=== PATIENT | female | born 1975 | race Caucasian/White ===

== ENCOUNTER 2020-08-23 05:25 | Day surgery (SDC) | payer MEDICARE, MEDICAID ==
[2020-08-16 13:47] LABS: BASOPHILS # (AUTO) 0.1 X10'3 (0-0.2); BASOPHILS % (AUTO) 0.9 % (0-1); EOSINOPHILS # (AUTO) 0.1 X10'3 (0-0.9); EOSINOPHILS % (AUTO) 0.7 % (0-6); LYMPHOCYTES # (AUTO) 2.4 X10'3 (1.1-4.8); LYMPHOCYTES % (AUTO) 33.8 % (21-51); MEAN CORPUSCULAR HEMOGLOBIN 30.1 PG (27.0-31.0); MEAN CORPUSCULAR VOLUME 91.1 FL (78-98); MEAN PLATELET VOLUME 8.1 FL (7.4-10.4); MONOCYTES # (AUTO) 0.6 X10'3 (0-0.9); MONOCYTES % (AUTO) 8.5 % (2-12); NEUTROPHILS % (AUTO) 56.1 % (42-75); PRE OP HEMATOCRIT 49.9 % (35.0-45.0); PRE OP HEMOGLOBIN 16.5 g/dL (12.0-16.0); PRE OP PLATELET COUNT 324 X10'3 (140-440); RED BLOOD COUNT 5.47 X10'6 (4.20-5.60); RED CELL DISTRIBUTION WIDTH 13.1 % (11.5-14.5)
[2020-08-16 14:02] LABS: ALBUMIN 3.9 G/DL (3.4-5.0); ALKALINE PHOSPHATASE 55 IU/L (46-116); BLOOD UREA NITROGEN 12 MG/DL (7-18); BUN/CREATININE RATIO 11.1 (6.6-38.0); CALCIUM 9.5 MG/DL (8.5-10.1); CHLORIDE 107 MMOL/L (99-107); CREATININE 1.08 MG/DL (0.40-0.90); PRE OP ALT 23 U/L (30-65); PRE OP ANION GAP 12 (8-16); PRE OP AST 11 U/L (10-37); PRE OP BILIRUB, TOTAL 0.5 MG/DL (0.0-1.0); PRE OP GLUCOSE 119 MG/DL (70-104); PRE OP POTASSIUM 3.9 MMOL/L (3.4-5.1); PRE OP SODIUM 143 MMOL/L (135-145); TOTAL CARBON DIOXIDE 23.7 MMOL/L (24-32); TOTAL PROTEIN 7.8 G/DL (6.4-8.2); eGFR 55 ML/MIN
[2020-08-16 14:06] LABS: HCG SERUM QL NEGATIVE
[~2020-08-23] VITALS: Ht 157.5 cm; Wt 95.0 kg
[~2020-08-23 05:25] MED LIST: ACETAMINOPHEN PO; ALB0.5UD IH; BUPR100T7 PO; BUSP10TA3 PO; ERGO500054 PO; ESOM20CA38 PO; FLUT16SP11 BOTHNARES; GABA600T13 PO; IBUP-1986 PO; LEVO1TAB80 PO; LIDO28.35 TOP; LORA10TA7 PO; METF-900 PO; METO-395 PO; ONDA4TAB12 PO; TOP100T PO; UBRO50TA PO; ZIPR80CA10 PO; ringers solution, lacted 1,000 ML IV SCH
[2020-08-23] MEDS ORDERED: DOCUMENT DATE & TIME OF BETA-BLOCKER PO ONE (05:30)
[2020-08-23] MEDS ORDERED: clindamycin-Cleocin 900mg/D5W 50 ML IV ONE (05:30)
[2020-08-23] MEDS ORDERED: famotidine 20mg tablet PO ONE (05:30)
[2020-08-23 06:00] VITALS: BP 137/92
[2020-08-23] MEDS ORDERED: BUPIVAcaine/PF 2.5mg/ml (0.25%) 10ml vial ONE (06:48)
[2020-08-23] MEDS ORDERED: LIDOcaine 0.5% (5mg/ml) 50ml vial ONE (07:26)
[2020-08-23] MEDS ORDERED: morphine 2 MG/ML inj. syringe IV PRN (07:35)
[2020-08-23] MEDS ORDERED: proCHLORperazine 10 MG/2 ml inj IV PRN (07:35)
[2020-08-23] MEDS ORDERED: ringers solution, lacted 1,000 ML IV SCH (07:35)
[2020-08-23] MEDS ORDERED: morphine 4 MG/ML inj SYRINge IV PRN (07:35)
[2020-08-23] MEDS ORDERED: ondansetron/PF 4mg/2ml inj IV PRN (07:35)
[2020-08-23] MEDS ORDERED: meperidine/PF 25mg/ml syringe IV PRN ×3 (07:35)
[2020-08-23] MEDS ORDERED: LIDOcaine 1% (10mg/ml) 2ml vial ONE (07:39)
[2020-08-23] MEDS ORDERED: midazolam 2 mg/2 ml injection ONE (08:24)
[2020-08-23] MEDS ORDERED: fentaNYL/PF 50MCG/1 ML 2ML syringe ONE (08:24)
[2020-08-23] MEDS ORDERED: propofol inj 20 ML IV ONE (09:00)
[2020-08-23 09:12] VITALS: BP_SYST 130; BP_SYST 137; BP_DIAS 80; BP_DIAS 91
[2020-08-23 09:20] VITALS: BP 126/74
[2020-08-23 09:30] VITALS: BP 129/85
[2020-08-23 09:40] VITALS: BP 145/82
--- NOTE | 2020-08-23 09:40 | NUR ---
Pt blood sugar 44 but not symptomatic, MD was called, states ok to just do PO sugars juice crackers etc. Retested blood sugar prior to DC and up to 107. Pt feels stable and this was all relayed by phone to caregiver so she can follow up with hydration and food intake today.
--- NOTE | 2020-08-23 10:02 | NUR ---
PATIENT AND FAMILY AND THEY HAVE VERBALIZED UNDERSTANDING, OPPORTUNITY TO ASK QUESTIONS GIVEN AND PATIENT COMFORTABLE WITH DC. IV TAKEN OUT WITHOUT COMPLICATION. PATIENT HAS MET ALL DC CRITERIA FOR DC HOME. I HAVE REVIEWED D/C INSTRUCTIONS WITH OUT VIA WHEELCHAIR WHERE PATIENT WAS TAKEN HOME WITH ALL BELONGINGS. FAMILY GAVE PATIENT TRANSPORT HOME. Caregiver given all DC instructions on the phone also and verbalized understanding. They have pain meds already at home from MD office.
== END 2020-08-23 10:02 | disposition home or self-care (01) ==
LOC: PAS 05:25
PROVIDERS: ATTEND Orthopaedic Surgery Hand Surgery
DX: M19.041 Primary osteoarthritis, right hand (principal); J44.9 Chronic obstructive pulmonary disease, unspecified; G47.30 Sleep apnea, unspecified; G43.909 Migraine, unspecified, not intractable, without status migrainosus; F32.9 Major depressive disorder, single episode, unspecified; F41.9 Anxiety disorder, unspecified; G89.29 Other chronic pain; M41.9 Scoliosis, unspecified; E11.9 Type 2 diabetes mellitus without complications; I10 Essential (primary) hypertension; E66.1 Drug-induced obesity; Z68.37 Body mass index [BMI] 37.0-37.9, adult; Z98.51 Tubal ligation status; Z90.49 Acquired absence of other specified parts of digestive tract; Z98.890 Other specified postprocedural states; Z88.0 Allergy status to penicillin; Z88.8 Allergy status to other drugs, medicaments and biological substances; Z88.1 Allergy status to other antibiotic agents; Z79.84 Long term (current) use of oral hypoglycemic drugs; Z79.899 Other long term (current) drug therapy; Z72.89 Other problems related to lifestyle; Z20.828 Contact with and (suspected) exposure to other viral communicable diseases
CPT/HCPCS: 26860; 36415; 80053; 82948; 84703; 85025; 87635; 93005; C1713; J2001; J2250; J2704; J3010; J3490; J7120; A4215; A4618; A7000